=== PATIENT | male | born 1960 | race Caucasian/White ===

== ENCOUNTER 2017-06-07 22:20 | Emergency (ER) | payer OTHER ==
[~2017-06-07] VITALS: Ht 152.4 cm; Wt 72.7 kg
[2017-06-07 22:32] LABS: GLUCOSE,POINT OF CARE 144 MG/DL (70-110)
[2017-06-07] MEDS ORDERED: TRANEXAMIC ACID 1,000 MG/10 ML VIAL IVP ONE (22:45)
[2017-06-07] MEDS ORDERED: ACET-2116 PO (22:47)
[2017-06-07] MEDS ORDERED: OXYC10 PO (22:47)
[2017-06-07 23:13] LABS: BASOPHILS # (AUTO) 0.07 K/uL (0.00-0.20); BASOPHILS % (AUTO) 1.3 % (0.0-2.0); EOSINOPHILS # (AUTO) 0.07 K/uL (0.00-0.70); EOSINOPHILS % (AUTO) 1.46 % (1.0-6.0); HEMATOCRIT 21.6 % (41-53); HEMOGLOBIN 7.1 g/dL (13.5-17.5); LYMPHOCYTES # (AUTO) 1.9 K/uL (1.0-4.8); LYMPHOCYTES % (AUTO) 37.8 % (22.0-44.0); MEAN CORPUSCULAR HEMOGLOBIN 32.8 pg (26.0-34.0); MEAN CORPUSCULAR HGB CONC 32.8 G/dL (31.0-37.0); MEAN CORPUSCULAR VOLUME 100 fL (80-100); MONOCYTES # (AUTO) 0.7 K/uL (0.1-1.0); MONOCYTES % (AUTO) 13.7 % (2.0-9.0); NEUTROPHILS # (AUTO) 2.3 K/uL (1.8-7.7); NEUTROPHILS % (AUTO) 45.7 % (40.0-70.0); PLATELET COUNT (AUTO) 57 K/uL (150-450); RED BLOOD CELL COUNT(AUTO) 2.16 MIL/uL (4.50-5.90); RED CELL DISTRIBUTION WIDTH 15.7 % (11.5-14.5)
[2017-06-07 23:23] LABS: INR 1.4 (0.9-1.1); PROTHROMBIN TIME 14.6 SEC (9.4-11.6)
[2017-06-08 00:18] LABS: CREATININE 1.53 mg/dL (0.60-1.30); POTASSIUM 3.8 mmol/L (3.5-5.1)
[2017-06-08 00:24] LABS: BILIRUBIN,TOTAL 0.6 mg/dL (0.1-1.0); TOTAL PROTEIN, SERUM 5.7 g/dL (6.4-8.2)
[2017-06-08] MEDS ORDERED: THROMBIN TP ONE (00:30)
[2017-06-08] MEDS ORDERED: GELATIN SPONGE,ABSORBABLE 50 MM TP ONE ×2 (00:30)
[2017-06-08] MEDS ORDERED: THROMBIN, BOVINE 20000 UNITS/VIAL POWDER TP ONE (00:45)
[2017-06-08 03:30] VITALS: BP 116/66
== END 2017-06-08 03:45 | disposition home or self-care (01) ==
LOC: EMS 22:22
DX: K06.8 Other specified disorders of gingiva and edentulous alveolar ridge (principal); D64.9 Anemia, unspecified; R79.1 Abnormal coagulation profile; D69.6 Thrombocytopenia, unspecified
CPT/HCPCS: 36415; 80053; 82962; 85025; 85610; 85730; 96374; 99284; J3490; Z7610